=== PATIENT | male | born 1945 | race African-American/Black ===

== ENCOUNTER → 2021-07-14 | Outpatient (CLI) | payer MEDICARE ==
[~2021-07-14] MED LIST: AMLO-186 PO; ATOR20TA58 PO; DICY10CA3 PO; FERR325T14 PO; METO25TA4 PO; OXYC1TAB19 PO; TAMS0.4C97 PO; VENL50TA PO
[2021-07-14 15:03] LABS: ALBUMIN 3.9 g/dL (3.4-5.0); CALCIUM 10.1 mg/dL (8.5-10.1); CREATININE 1.7 mg/dL (0.7-1.3); GFR 47.5; TOTAL BILIRUBIN 0.6 mg/dL (0.2-1.0); TOTAL PROTEIN 7.7 g/dL (6.4-8.2)
[2021-07-14 15:16] LABS: BASO % 1 % (0-3); EOS # 0.2 x10^3/uL (0.0-0.7); EOS % 6 % (0-3); HEMOGLOBIN 13.6 g/dL (13.0-17.5); LYMPH # 1.3 x10^3/uL (1.0-4.8); LYMPH % 37 % (24-48); MEAN CORPUSCULAR HEMOGLOBIN 31 pg (25-35); MEAN CORPUSCULAR HGB CONC 33 g/dL (31-37); MEAN CORPUSCULAR VOLUME 94 fL (79-100); MONO # 0.3 x10^3/uL (0.0-1.1); MONO % 10 % (0-9); NEUT # 1.7 x10^3/uL (1.8-7.7); NEUT % 46 % (31-73); PLATELET COUNT 209 x10^3/uL (140-400); RED BLOOD COUNT 4.35 x10^6/uL (4.30-5.70); RED CELL DISTRIBUTION WIDTH 14.6 % (11.5-14.5); WHITE BLOOD COUNT 3.6 x10^3/uL (4.0-11.0)
[2021-07-14 15:46] LABS: PROTHROMBIN TIME PATIENT 13.5 SEC (11.7-14.0)
--- NOTE | 2021-07-20 15:01 | HP ---
ADMIT DATE: 07/19/2021 HISTORY OF PRESENT ILLNESS: The patient is referred because of a mass in the left inguinal area. He was doing well until 07/11, he had a mass in the left inguinal area, which for [facility] They reduced it and he had a CT scan, which showed a left inguinal hernia. He had a right side first some years ago and there is a recurrent right inguinal hernia but is much smaller. PAST MEDICAL HISTORY: Does show that he has had atrial fibrillation and apparently has a Watchman in for that and also has had keloid surgery in the chest, and had gallbladder open surgery and also has had a right inguinal hernia repair. 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 He also has arthritis of hips. ALLERGIES: HE IS ALLERGIC TO SULFA. MEDICATIONS: He only takes medicine for hypertension. REVIEW OF SYSTEMS: Negative, as he only has somewhat pain in the left inguinal area, which is much better since I reduced the hernia. FAMILY HISTORY: Noncontributory. PHYSICAL EXAMINATION: GENERAL: Shows an alert male in no acute distress. HEAD, EYES, EARS, NOSE AND THROAT: Unremarkable. Grossly normal. CHEST: Clear bilaterally. HEART: Had a regular rate of 70 beats per minute. There was no irregular beats at this time. ABDOMEN: Showed the scars of previous surgery. He did have a mass in the left inguinal area, which could not be completely reduced, but was partially reduced. It is minimally painful at this point. RECTAL: Examination not done. He did have a scars from the knee surgery. IMPRESSION: 1. Hypertension. 2. Atrial fibrillation. 3. Keloid formation. 4. 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 5. Bilateral inguinal hernias. PLAN: He will have cardiac clearance and wishes to have the hernia repaired. We will proceed to work toward that end and plan to do an open left inguinal hernia repair. As discussed, the right, we will not do it at the same time. YOKO/SHOSHANA/ELI DR: Rahul TID: [id number]
== END ==
LOC: SURGPAT 13:32
PROVIDERS: ATTEND Specialist
DX: Z01.812 Encounter for preprocedural laboratory examination (principal); K40.30 Unilateral inguinal hernia, with obstruction, without gangrene, not specified as recurrent
CPT/HCPCS: 36415; 80053; 85025; 85610

== ENCOUNTER 2021-07-19 11:14 | Day surgery (SDC) | payer MEDICARE ==
[2021-07-14 13:56] VITALS: BP 148/85
[~2021-07-19] VITALS: Ht 180.3 cm; Wt 72.2 kg
[~2021-07-19 11:14] MED LIST changes: +BUPIVACAINE-EPI 0.5% 30 ML VIAL KIT. ONE; +DEXAMETHASONE SOD PHOS 4 MG/ML VIAL ONE; +IV RINGERS,LACTATED 1000ML 1,000 ML IV SCH; +LIDOCAINE 2% PF 5 ML VIAL. ONE; +ONDANSETRON PF 4 MG/2 ML VIAL. ONE; -OXYC1TAB19 PO; +PHENYLEPHRINE in 0.9% NACL PF 1 MG/10 ML SYRINGE. IV ONE; +PROCHLORPERAZINE 10 MG/2 ML VIAL. IVP PRN; +PROPOFOL 10 MG/ML (20ML) VIAL. IV ONE; +SUCCINYLCHOLINE 200 MG/10 ML VIAL. ONE; +ceFAZolin SODIUM IV Push 1 GM VIAL. IVP PRN; +fentaNYL PF VIAL 100 MCG/2 ML VIAL IVP PRN; +fentaNYL PF VIAL 100 MCG/2 ML VIAL ONE
[2021-07-19 11:37] VITALS: BP 133/76
--- NOTE | 2021-07-19 11:45 | PDOC ---
SURGICAL PROGRESS NOTE DATE: 07/19/21 TIME: 11:43 Op Note: Surgeon...............................Brayan Pre op diag...........................incarc left ingunal hernia Post op diag.........................same Anesthesia............................general Procedure.............................Repair incarcerated left inguinal hernia Drains..................................none Fluids...................................see anesthesia sheet Blood loss.............................10cc Conditin...............................satisfactory MARKO LEE MD Jul 19, 2021 11:45
--- NOTE | 2021-07-19 11:46 | PDOC ---
SURGICAL PROGRESS NOTE DATE: 07/19/21 TIME: 11:46 No change in dictated H&P Justicifation of Admission Dx: Justifications for Admission: Justification of Admission Dx: Yes MARKO LEE MD Jul 19, 2021 11:46
[2021-07-19] MEDS ORDERED: GLYCOPYRROLATE 1 MG/5 ML VIAL. ONE (12:32)
[2021-07-19] MEDS ORDERED: PHENYLEPHRINE 10 MG/ML VIAL. ONE (12:34)
[2021-07-19] MEDS ORDERED: ROCURONIUM 50 MG/5 ML VIAL. ONE (12:48)
[2021-07-19] MEDS ORDERED: NEOSTIGMINE METHYLSULFATE 5 MG/5 ML SYRINGE. ONE (12:55)
[2021-07-19] MEDS ORDERED: BUPIVACAINE-EPI 0.5% 30 ML VIAL KIT. ONE (13:53)
[2021-07-19] MEDS ORDERED: fentaNYL PF VIAL 100 MCG/2 ML VIAL ONE ×2 (13:57→15:16)
[2021-07-19] MEDS ORDERED: BUPIVACAINE-EPI 0.5%-1:200000 MPF 30 ML VIAL. ONE (13:58)
[2021-07-19] MEDS ORDERED: ceFAZolin SODIUM IV Push 1 GM VIAL. IVP ONE (14:12)
--- NOTE | 2021-07-19 15:09 | DISCH ---
DISCHARGE INSTRUCTIONS Condition on Discharge Condition on Discharge: Stable Activity After Discharge Activity Instructions for Disc: Avoid exertion Diet after Discharge Diet after Discharge: Clear Liquid Wound Incision Care Other wound/incision instructi: leave dressing in place Follow-Up Follow up with: make appt to see Me in 8 days Treatment/Equipment after DC Adaptive Equipment Issued: None MARKO LEE MD Jul 19, 2021 15:09
[2021-07-19] MEDS: fentaNYL PF VIAL 100 MCG/2 ML VIAL IVP PRN ×2 (15:20→15:38)
[2021-07-19] MEDS ORDERED: OXYC1TAB19 PO (15:24)
[2021-07-19] MEDS ORDERED: oxyCODONE/APAP 7.5/325 1 TAB TABLET PO ONE (15:30)
[2021-07-19] MEDS ORDERED: MORPHINE SULFATE 2 MG/ML INJ. ONE (15:59)
[2021-07-19] MEDS: MORPHINE SULFATE 2 MG/ML INJ. IVP PRN ×2 (16:02→16:11)
[2021-07-19] MEDS ORDERED: HYDROmorphone 2 MG/ML VIAL ONE (16:22)
[2021-07-19] MEDS: HYDROmorphone 2 MG/ML VIAL IVP PRN ×2 (16:25→16:35)
[2021-07-19 17:00] VITALS: BP 136/72
--- NOTE | 2021-07-20 15:21 | OP ---
DATE OF SURGERY: 07/19/2021 SURGEON: Jaden Schmidt MD PREOPERATIVE DIAGNOSIS: Incarcerated left inguinal hernia. POSTOPERATIVE DIAGNOSIS: Incarcerated left inguinal hernia. ANESTHESIA: General. PROCEDURE: Repair of incarcerated left inguinal hernia. TECHNIQUE: Under general anesthesia, the patient was properly prepped and draped in a routine fashion. We used a 15 blade to make an incision in the left inguinal area. We made it through a previous scar that he had and he does have keloid, so we want to have a few scars as possible. We went through the scar, which was not keloid, but minimally hypertrophic. We did this with a 15 blade. We made a transverse incision following the skin lines in the scar. We got into the subQ and identified where the parameters were that needed to be dealt with and went down to the external oblique aponeurosis with cautery. We then made a small incision in the oblique fashion in directions of the fibers of the external oblique with a 15 blade and then passed the Metzenbaum scissors under this, spread it and then opened it up to the internal inguinal ring. We went a little more laterally also. There was a large mass there, could not tell what was what, but at the pubic tubercle. We tried to encircle it, but there was a lot of scar tissue there. This had to be broken up with Metzenbaum scissors and finger dissection. We went around the mass there and obviously, the mass went down into the scrotum. We encircled this, pulled it up and divided the attachments, which was mostly scar tissue to this area. It was obvious that this came through the posterior floor and he had no posterior floor on the inguinal canal, just this mass that was there. On CT, it showed it portable with the bladder. This was slowly removed, freed up mostly using Metzenbaum scissors, some cautery, but mostly finger dissection and freed the preperitoneal fat and all the tissues around it. We did identify the sac, freed it up well. The sac was in, but it was so intimately associated with the preperitoneal mass, we did open in through the peritoneal cavity. We then freed this up well up into the hernia site and we were able to reduce it. We sutured using 2-0 Prolene to PerFix plugs together, placed these in this area and they stayed without pressure and there was good reduction of the hernia well up into the preperitoneal space. The cord structures were left intact and to our knowledge, we proceeded to suture the PerFix plug with interrupted 2-0 and 0 Prolene to the deep Jacobo's ligament and also Jacobo's ligament and also from the pubic tubercle and took the transversalis fascia deep also. This sutured these in place ____ well. We then placed a patch over this area making an opening for the cord structures and likewise, ran it using 0 Prolene suture at the pubic tubercle laterally taking the shelving edge of Poupart's ligament well up passing internal inguinal ring and then more medially and cephalad sutured this to the transversalis fascia and came back around to Poupart's ligament. We made certain that the cord structures went through this loosely without any tension and was sutured very loosely with 2-0 Prolene. We then injected with 0.5% Marcaine in the area liberally to alleviate pain. All bleeding was stopped. There was no bleeding, no hemorrhage. The hernia was reduced. The patch was then placed. Cord structures in normal position and all appeared unremarkable. We then closed the external oblique aponeurosis with a running 2-0 Prolene. This was likewise with 0.5% Marcaine. We then irrigated the subQ with copious amounts of saline and approximated it using interrupted 4-0 Vicryl. The skin was closed using a skin stapler and on 1 or 2 occasions the suture as it was difficult to get the scar ____ made without this. The procedure was now terminated as the sterile Tegaderm dressing was applied. The blood loss was about 10-50 mL. Fluids given can be obtained from the anesthesia sheet. No drains were used and the condition of the patient was satisfactory as he returned to the recovery room. LANNY/KODAK DR: Rahul TID: [id number]
== END 2021-07-19 17:25 | disposition home or self-care (01) ==
LOC: SURG 11:14
PROVIDERS: ATTEND Specialist
DX: K40.30 Unilateral inguinal hernia, with obstruction, without gangrene, not specified as recurrent (principal); I10 Essential (primary) hypertension; I48.91 Unspecified atrial fibrillation; E78.00 Pure hypercholesterolemia, unspecified; N40.0 Benign prostatic hyperplasia without lower urinary tract symptoms; F32.9 Major depressive disorder, single episode, unspecified; Z87.891 Personal history of nicotine dependence; Z90.49 Acquired absence of other specified parts of digestive tract; Z98.890 Other specified postprocedural states; Z79.899 Other long term (current) drug therapy; Z88.2 Allergy status to sulfonamides; Z72.89 Other problems related to lifestyle
CPT/HCPCS: 49507; A4930; A6258; C1781; J0330; J0690; J1100; J1170; J2270; J2370; J2405; J2704; J2710; J3010; J3490